=== PATIENT | male | born 1950 | race Caucasian/White ===

== ENCOUNTER → 2018-04-28 | Outpatient (REF) | payer OTHER, MEDICARE, BC | LOC: M SMT 14:13 | DX: R97.20 Elevated prostate specific antigen [PSA] (principal) ==

== ENCOUNTER → 2018-06-21 | Outpatient (CLI) | payer MEDICARE, BC | LOC: M SMT PRO 08:19 | DX: C61 Malignant neoplasm of prostate (principal); R97.20 Elevated prostate specific antigen [PSA] | CPT/HCPCS: G0416 ==

== ENCOUNTER 2018-08-04 10:21 | Inpatient (IN) | payer MEDICARE, BC ==
[2018-08-04] MEDS: LR 1,000 ML IV ×2 (06:00→20:24)
[~2018-08-04 10:21] MED LIST: LIDOCAINE 2% INJ 100 MG/5 ML SDV (FOR ANES.) As Ordered; LR 1,000 ML IV; MIDAZOLAM INJ 2 MG/2 ML VIAL (J2250) As Ordered; ONDANSETRON 4MG/2ML VIAL (J2405) As Ordered; PROPOFOL 200 MG/20 ML VIAL As Ordered; ROCURONIUM BROMIDE 50 MG/5 ML VIAL As Ordered; dexameTHASONE 4 MG/ML 1ML VIAL (J1100) As Ordered; fentaNYL 250 MCG/5 ML INJECTION (J3010) As Ordered
[2018-08-04] MEDS ORDERED: ceFAZolin 2 GM/D5W 50 ML IV BAG (J0690 PER 500MG) As Ordered (10:51)
[2018-08-04 11:25] LABS: INR 0.96; PROTHROMBIN TIME 12.9 SECONDS (12.1-14.4)
[2018-08-04 11:54] LABS: PARTIAL THROMBOPLASTIN TIME 26.5 SECONDS (25.4-37.6)
[2018-08-04] MEDS ORDERED: MORPHINE 4 MG/ML 1ML VIAL/SYRINGE (J2270) IV (14:45)
[2018-08-04] MEDS ORDERED: ONDANSETRON 4MG/2ML VIAL (J2405) IV (14:45)
[2018-08-04] MEDS ORDERED: ACETAMINOPHEN TAB 650MG DOSE (2X325MG) PO (14:45)
[2018-08-04] MEDS: HEPARIN SOD (PORCINE) 5000 UNITS/ML VIAL SQ (15:03)
[2018-08-04] MEDS: ceFAZolin SOD 1 GM in D5W MINI-BAG PLUS 50 ML IV (15:10)
[2018-08-04] MEDS ORDERED: ROCURONIUM BROMIDE 50 MG/5 ML VIAL As Ordered (16:17)
[2018-08-04] MEDS ORDERED: HYDROmorphone HCL 2 MG/ML 1ML VIAL (J1170) As Ordered (17:55)
[2018-08-04] MEDS: ceFAZolin 2 GM/D5W 50 ML IV BAG (J0690 PER 500MG) As Ordered (19:35)
[2018-08-04] MEDS ORDERED: GLYCOPYRROLATE INJ 0.2 MG/ML 2 ML VIAL As Ordered ×2 (19:47)
[2018-08-04] MEDS ORDERED: NEOSTIGMINE 10 MG/10 ML VIAL (J2710) As Ordered (19:47)
[2018-08-04] MEDS: LIDOCAINE 1% SDV INJ 30 ML VIAL As Ordered (20:05)
[2018-08-04] MEDS: BUPIVACAINE HCL 0.25% 30 ML VIAL As Ordered (20:05)
[2018-08-04] MEDS ORDERED: ESMOLOL INJ 100MG/10ML VIAL As Ordered (20:25)
[2018-08-04] MEDS ORDERED: PERCOCET 5MG/325MG TAB PO (20:45)
[2018-08-04] MEDS ORDERED: fentaNYL 100 MCG/2 ML INJECTION (J3010) IV (20:45)
[2018-08-04] MEDS: METOCLOPRAMIDE INJ 10MG/2ML VIAL (J2765) IV (20:48)
[2018-08-04 20:52] LABS: HEMATOCRIT 38.6 % (42.0-52.0); HEMOGLOBIN 13.1 g/dl (13.5-17.5); MEAN CORPUSCULAR HEMOGLOBIN 29.6 pg (27.0-33.0); MEAN CORPUSCULAR HGB CONC 33.9 g/dl (32.0-36.5); MEAN CORPUSCULAR VOLUME 87.3 fl (80.0-96.0); PLATELET COUNT, AUTOMATED 203 10^3/uL (150-450); RED BLOOD COUNT 4.42 10^6/uL (4.30-6.10); RED CELL DISTRIBUTION WIDTH 13.4 % (11.5-14.5); WHITE BLOOD COUNT 14.8 10^3/uL (4.0-10.0)
[2018-08-04] MEDS: ONDANSETRON 4MG/2ML VIAL (J2405) IV (20:58)
[2018-08-04 21:10] LABS: ANION GAP 8 MEQ/L (8-16); BLOOD UREA NITROGEN 17 MG/DL (7-18); CALCIUM LEVEL 8.3 MG/DL (8.8-10.2); CARBON DIOXIDE LEVEL 26 MEQ/L (21-32); CHLORIDE LEVEL 107 MEQ/L (98-107); CREATININE FOR GFR 1.22 MG/DL (0.70-1.30); GLOMERULAR FILTRATION RATE > 60.0 (>49); GLUCOSE, FASTING 157 MG/DL (70-100); POTASSIUM SERUM 4.1 MEQ/L (3.5-5.1); SODIUM LEVEL 141 MEQ/L (136-145)
[2018-08-04] MEDS: hydroCHLOROthiazide 12.5 MG CAPSULE PO (21:58)
[2018-08-04] MEDS: IRBESARTAN 150 MG TAB PO (21:59)
[2018-08-04] MEDS: ATORVASTATIN 20 MG TAB PO (22:11)
[2018-08-04] MEDS: NS 1,000 ML IV ×2 (22:11→22:17)
[2018-08-04] MEDS: DOCUSATE SODIUM 100 MG CAP PO (22:11)
[2018-08-04] MEDS: HEPARIN SOD (PORCINE) 5000 UNITS/ML VIAL SC (22:12)
[2018-08-04] MEDS: TERAZOSIN 1 MG CAP PO (22:14)
[2018-08-05] MEDS: NS 1,000 ML IV (05:11)
[2018-08-05] MEDS: HEPARIN SOD (PORCINE) 5000 UNITS/ML VIAL SC ×2 (05:11→13:19)
[2018-08-05] MEDS: ceFAZolin SOD 1 GM in D5W MINI-BAG PLUS 50 ML IV (05:17)
[2018-08-05 06:23] LABS: HEMATOCRIT 33.5 % (42.0-52.0); HEMOGLOBIN 11.2 g/dl (13.5-17.5); MEAN CORPUSCULAR HEMOGLOBIN 29.9 pg (27.0-33.0); MEAN CORPUSCULAR HGB CONC 33.4 g/dl (32.0-36.5); MEAN CORPUSCULAR VOLUME 89.3 fl (80.0-96.0); PLATELET COUNT, AUTOMATED 184 10^3/uL (150-450); RED BLOOD COUNT 3.75 10^6/uL (4.30-6.10); RED CELL DISTRIBUTION WIDTH 13.5 % (11.5-14.5); WHITE BLOOD COUNT 12.1 10^3/uL (4.0-10.0)
[2018-08-05 06:41] LABS: ANION GAP 11 MEQ/L (8-16); BLOOD UREA NITROGEN 20 MG/DL (7-18); CALCIUM LEVEL 8.1 MG/DL (8.8-10.2); CARBON DIOXIDE LEVEL 22 MEQ/L (21-32); CHLORIDE LEVEL 107 MEQ/L (98-107); CREATININE FOR GFR 1.12 MG/DL (0.70-1.30); GLOMERULAR FILTRATION RATE > 60.0 (>49); GLUCOSE, FASTING 128 MG/DL (70-100); POTASSIUM SERUM 4.2 MEQ/L (3.5-5.1); SODIUM LEVEL 140 MEQ/L (136-145)
[2018-08-05] MEDS: hydroCHLOROthiazide 12.5 MG CAPSULE PO (08:01)
[2018-08-05] MEDS: IRBESARTAN 150 MG TAB PO (08:01)
[2018-08-05] MEDS: ASPIRIN 81 MG ENTERIC TAB PO (08:16)
[2018-08-05] MEDS: DOCUSATE SODIUM 100 MG CAP PO (08:16)
[2018-08-05] MEDS: OMEPRAZOLE 20 MG CAP PO (08:16)
[2018-08-05] MEDS: PERCOCET 5MG/325MG TAB PO ×3 (08:17→17:32)
[2018-08-05] MEDS: PREVNAR 13 VACCINE SYRINGE (CPT CODE:90670) IM (08:24)
== END 2018-08-05 18:12 | disposition home or self-care (01) | DRG 708 ==
LOC: M OR 10:21 → M MSPAV 21:20
PROC: 0VT04ZZ Resection of Prostate, Percutaneous Endoscopic Approach (ICD-10-PCS; principal; 2018-08-04 12:00)
PROC: 07BC0ZX Excision of Pelvis Lymphatic, Open Approach, Diagnostic (ICD-10-PCS; 2018-08-04 12:00)
PROC: 0VT34ZZ Resection of Bilateral Seminal Vesicles, Percutaneous Endoscopic Approach (ICD-10-PCS; 2018-08-04 12:00)
PROC: 8E0W4CZ Robotic Assisted Procedure of Trunk Region, Percutaneous Endoscopic Approach (ICD-10-PCS; 2018-08-04 12:00)
DX: C61 Malignant neoplasm of prostate (principal); K22.70 Barrett's esophagus without dysplasia; G47.30 Sleep apnea, unspecified; N40.0 Benign prostatic hyperplasia without lower urinary tract symptoms; E78.5 Hyperlipidemia, unspecified; I10 Essential (primary) hypertension; K21.9 Gastro-esophageal reflux disease without esophagitis; Z79.82 Long term (current) use of aspirin; Z79.899 Other long term (current) drug therapy; Z86.73 Personal history of transient ischemic attack (TIA), and cerebral infarction without residual deficits; Z88.8 Allergy status to other drugs, medicaments and biological substances

== ENCOUNTER → 2018-09-13 | Outpatient (CLI) | payer MEDICARE, BC ==
[2018-09-13 13:36] LABS: PROSTATIC SPECIFIC AG MONITOR 0.01 NG/ML (< 4.0)
== END ==
LOC: M SMT 10:03
DX: C61 Malignant neoplasm of prostate (principal)
CPT/HCPCS: 84153

== ENCOUNTER → 2018-12-09 | Outpatient (CLI) | payer MEDICARE, BC ==
[~2018-12-09] MED LIST changes: +ACIP1TAB PO; +ARTH1TAB4 PO; +ASPI1TAB PO; +ATOR1TAB21 PO; +AVAP75TA7 PO; +AZEL0.055 NARES; +CIPR1TAB20 PO; +COLA100C5 PO; +FISHCAP PO; +FLUTISP; +HYDR12CA PO; -LIDOCAINE 2% INJ 100 MG/5 ML SDV (FOR ANES.) As Ordered; -LR 1,000 ML IV; -MIDAZOLAM INJ 2 MG/2 ML VIAL (J2250) As Ordered; -ONDANSETRON 4MG/2ML VIAL (J2405) As Ordered; +OXYC1TAB23 PO; +PERC5TAB12 PO; +PRESCAP PO; -PROPOFOL 200 MG/20 ML VIAL As Ordered; +RETA0.5E OP; -ROCURONIUM BROMIDE 50 MG/5 ML VIAL As Ordered; +TERA2CAP3 PO; +TYLE650T35 PO; -dexameTHASONE 4 MG/ML 1ML VIAL (J1100) As Ordered; -fentaNYL 250 MCG/5 ML INJECTION (J3010) As Ordered
== END ==
LOC: M SMT 09:15
PROVIDERS: ATTEND Urology
DX: C61 Malignant neoplasm of prostate (principal)

== ENCOUNTER → 2019-03-28 | Outpatient (CLI) | payer MEDICARE, BC ==
[~2019-03-28] MED LIST changes: -ASPI1TAB PO; +ASPI81TA26 PO
== END ==
LOC: M SMT 09:17
PROVIDERS: ATTEND Nurse Practitioner Family
DX: R97.20 Elevated prostate specific antigen [PSA] (principal)

== ENCOUNTER → 2019-07-10 | Outpatient (CLI) | payer MEDICARE, BC | LOC: M SMT 10:40 | PROVIDERS: ATTEND Urology | DX: C61 Malignant neoplasm of prostate (principal) ==

== ENCOUNTER → 2020-04-12 | Outpatient (CLI) | payer MEDICARE, BC ==
--- NOTE | 2020-04-17 15:45 | SLEEPCENT ---
DATE OF PROCEDURE: 04/12/2020 ORDERED BY: Marleny Gomez NP Nocturnal polysomnography was performed for re-titration of pressure therapy in this patient with obstructive sleep apnea syndrome experiencing persistent symptoms despite nightly use of continuous positive airway pressure (CPAP). For testing a ResMed Quattro full-face mask of medium size was used; 17 cm of water pressure were applied to the circuit and the lights were extinguished. 8 hours and 14 minutes of data were reviewed. There were 194 minutes of sleep identified. Sleep latency was prolonged at 28 minutes. Rapid eye movement (REM) latency was prolonged at 114 minutes. Sleep architecture was fair. With periods of wake resulted in a reduced sleep efficiency of only 39%. The electrocardiogram showed a sinus rhythm with an average heart rate of 62 beats per minute. There were premature ventricular contractions (PVCs) noted. Electroencephalogram (EEG) showed some alpha intrusion into non REM stages. Respiratory events were fairly well palliated with CPAP at 18 cm. There was no snoring noted through the mask at this pressure. A brief trial of bilevel therapy was initiated late in the study but the patient was unable to re-establish sleep. IMPRESSION: Obstructive sleep apnea syndrome (G47.33). RECOMMENDATION: Nightly use of pressure therapy at 18 cm of water was be sufficient to address the most significant of the patient's obstructive respiratory events.
== END ==
LOC: M SLEEP 20:00
PROVIDERS: ATTEND Nurse Practitioner Adult Health
DX: G47.33 Obstructive sleep apnea (adult) (pediatric) (principal)